=== PATIENT | female | born 2000 | race Caucasian/White ===

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

== ENCOUNTER 2021-01-18 15:53 | Emergency (ER) | payer OTHER ==
[~2021-01-18] VITALS: Ht 162.6 cm; Wt 63.7 kg
[2021-01-18] MEDS ORDERED: CEPHALEXIN 500 MG CAP PO ONE (17:10)
[2021-01-18] MEDS ORDERED: CEPH500C PO (17:12)
[2021-01-18] MEDS ORDERED: BACI500O8 TOP (17:12)
[2021-01-18 17:29] VITALS: BP 114/72
== END 2021-01-18 17:30 | disposition home or self-care (01) ==
LOC: M ED 15:53
DX: N64.52 Nipple discharge (principal); S21.041A Puncture wound with foreign body of right breast, initial encounter; W45.8XXA Other foreign body or object entering through skin, initial encounter; Y92.9 Unspecified place or not applicable; Y93.9 Activity, unspecified; Y99.9 Unspecified external cause status

== ENCOUNTER 2021-01-22 10:00 | Emergency (ER) | payer OTHER ==
[~2021-01-22] VITALS: Ht 162.6 cm; Wt 65.9 kg
[~2021-01-22 10:00] MED LIST: BACI500O8 TOP; CEPH500C PO
[2021-01-22 10:01] VITALS: BP 116/72
== END 2021-01-22 11:01 | disposition home or self-care (01) ==
LOC: M ED 10:00
DX: O03.9 Complete or unspecified spontaneous abortion without complication (principal); Z87.59 Personal history of other complications of pregnancy, childbirth and the puerperium

== ENCOUNTER 2021-02-04 07:44 | Emergency (ER) | payer OTHER ==
[~2021-02-04] VITALS: Ht 162.6 cm; Wt 66.9 kg
[2021-02-04] MEDS ORDERED: EPIP0.3I2 IM ×2 (07:51→12:46)
[2021-02-04] MEDS ORDERED: methylPREDNISolone 125MG 2ML VIAL IV ONE (07:55)
[2021-02-04] MEDS ORDERED: FAMOTIDINE INJ 20MG/2ML VIAL (S0028 PER 1) IVP ONE (07:55)
[2021-02-04] MEDS ORDERED: diphenhydrAMINE 50MG/ML VIAL (J1200) IV ONE (07:55)
[2021-02-04 13:16] VITALS: BP 111/68
== END 2021-02-04 13:09 | disposition home or self-care (01) ==
LOC: M ED 07:44
DX: T78.1XXA Other adverse food reactions, not elsewhere classified, initial encounter (principal); Z91.012 Allergy to eggs
CPT/HCPCS: 93041; 94760; 96374; 96375; 99291; J1200; J2930

== ENCOUNTER 2021-03-05 00:03 | Emergency (ER) | payer OTHER ==
[~2021-03-05] VITALS: Ht 162.6 cm; Wt 66.2 kg
[~2021-03-05 00:03] MED LIST changes: +EPIP0.3I2 IM
[2021-03-05] MEDS ORDERED: NS 1,000 ML IV ONE (01:35)
[2021-03-05] MEDS ORDERED: ONDANSETRON 4MG/2ML VIAL IV ONE (01:50)
[2021-03-05] MEDS ORDERED: KETOROLAC 30 MG/ML 1ML VIAL IV ONE (01:55)
[2021-03-05 02:22] LABS: BASO % 0.6 % (0.0-1.0); EOS # 0.2 10^3/uL (0.0-0.5); EOS % 3.3 % (0.0-3.0); HEMATOCRIT 34.1 % (36.0-47.0); HEMOGLOBIN 11.5 g/dl (12.0-15.5); LYMPH # 2.6 10^3/uL (1.5-5.0); MEAN CORPUSCULAR HEMOGLOBIN 31.5 pg (27.0-33.0); MEAN CORPUSCULAR HGB CONC 33.7 g/dl (32.0-36.5); MEAN CORPUSCULAR VOLUME 93.4 fl (80.0-96.0); MONO # 0.6 10^3/uL (0.0-0.8); MONO % 7.9 % (2.0-8.0); NEUTROPHILS # 3.5 10^3/uL (1.5-8.5); NEUTROPHILS % 50.1 % (36.0-66.0); PLATELET COUNT, AUTOMATED 278 10^3/uL (150-450); RED BLOOD COUNT 3.65 10^6/uL (4.00-5.40)
[2021-03-05 02:49] LABS: ALBUMIN 3.9 GM/DL (3.2-5.2); ALT/SGPT 17 U/L (12-78); BILIRUBIN,DIRECT < 0.1 MG/DL (0.0-0.2); BILIRUBIN,TOTAL 0.2 MG/DL (0.2-1.0); LIPASE 74 U/L (73-393); TOTAL PROTEIN 6.5 GM/DL (6.4-8.2)
[2021-03-05 04:15] VITALS: BP 102/57
[2021-03-05] MEDS ORDERED: ONDA4TAB6 PO (04:24)
== END 2021-03-05 04:58 | disposition home or self-care (01) ==
LOC: M ED 00:03
DX: T62.91XA Toxic effect of unspecified noxious substance eaten as food, accidental (unintentional), initial encounter (principal); Y92.9 Unspecified place or not applicable; Y93.9 Activity, unspecified; F17.290 Nicotine dependence, other tobacco product, uncomplicated; Z91.030 Bee allergy status; Z91.012 Allergy to eggs
CPT/HCPCS: 80047; 80076; 83690; 84702; 85025; 93041; 96361; 96374; 96375; 99284; J1885; J2405

== ENCOUNTER 2021-03-07 12:06 | Emergency (ER) | payer OTHER ==
[~2021-03-07] VITALS: Ht 162.6 cm; Wt 65.9 kg
[~2021-03-07 12:06] MED LIST changes: +ONDA4TAB6 PO
[2021-03-07] MEDS ORDERED: NS 1,000 ML IV ONE (13:55)
[2021-03-07 13:57] LABS: ALBUMIN 4.2 GM/DL (3.2-5.2); ALT/SGPT 17 U/L (12-78); BILIRUBIN,TOTAL 0.3 MG/DL (0.2-1.0); BLOOD UREA NITROGEN 9 MG/DL (7-18); CALCIUM LEVEL 8.8 MG/DL (8.5-10.1); CARBON DIOXIDE LEVEL 26 MEQ/L (21-32); CHLORIDE LEVEL 109 MEQ/L (98-107); CREATININE FOR GFR 0.57 MG/DL (0.55-1.30); GLUCOSE, FASTING 87 MG/DL (70-100); MAGNESIUM LEVEL 2.1 MG/DL (1.8-2.4); POTASSIUM SERUM 4.2 MEQ/L (3.5-5.1); SODIUM LEVEL 140 MEQ/L (136-145); TOTAL PROTEIN 7.1 GM/DL (6.4-8.2)
[2021-03-07 14:02] LABS: BASO % 0.4 % (0.0-1.0); EOS # 0.1 10^3/uL (0.0-0.5); EOS % 1.8 % (0.0-3.0); HEMATOCRIT 36.9 % (36.0-47.0); HEMOGLOBIN 12.1 g/dl (12.0-15.5); LYMPH # 1.7 10^3/uL (1.5-5.0); LYMPH % 29.3 % (24.0-44.0); MEAN CORPUSCULAR HGB CONC 32.8 g/dl (32.0-36.5); MEAN CORPUSCULAR VOLUME 94.6 fl (80.0-96.0); MONO # 0.4 10^3/uL (0.0-0.8); MONO % 7.1 % (2.0-8.0); NEUTROPHILS # 3.5 10^3/uL (1.5-8.5); PLATELET COUNT, AUTOMATED 277 10^3/uL (150-450); WHITE BLOOD COUNT 5.7 10^3/uL (4.0-10.0)
[2021-03-07 16:15] VITALS: BP 112/62
--- NOTE | 2021-03-07 21:01 | ECGEPIP ---
[facility] - ED Test Date: 2021-03-07 Pat Name: KEIKO STEPHENS Department: Room: - Gender: Female Housing Counselor: MAGGY : 2000 Requested By: Bridget Watts Order Number: [id number] Reading MD: Santosh Solorzano Measurements Intervals [place] Rate: 72 P: 49 MI: 156 QRS: 74 QRSD: 80 T: 45 QT: 354 QTc: 387 Interpretive Statements Normal sinus rhythm with sinus arrhythmia Comparison tracing not on file Electronically Signed on 03-07-2021 21:01:03 EDT by Santosh Solorzano
== END 2021-03-07 16:33 | disposition home or self-care (01) ==
LOC: M ED 12:06
DX: A08.4 Viral intestinal infection, unspecified (principal); F17.290 Nicotine dependence, other tobacco product, uncomplicated; Z91.030 Bee allergy status; Z91.012 Allergy to eggs

== ENCOUNTER 2021-04-12 16:18 | Emergency (ER) | payer OTHER ==
[~2021-04-12] VITALS: Ht 162.6 cm; Wt 65.0 kg
[2021-04-12 16:18] VITALS: BP 120/72
== END 2021-04-12 19:02 | disposition left against medical advice (07) ==
LOC: M ED 16:18
DX: Z53.21 Procedure and treatment not carried out due to patient leaving prior to being seen by health care provider (principal)

== ENCOUNTER 2021-07-24 07:12 | Emergency (ER) | payer OTHER ==
[~2021-07-24] VITALS: Ht 162.6 cm; Wt 68.2 kg
[2021-07-24] MEDS ORDERED: PRENTAB53 PO (07:21)
[2021-07-24] MEDS ORDERED: ACET-683 PO (07:21)
--- NOTE | 2021-07-24 08:58 | REP ---
INDICATION: COVID positive, tachycardia COMPARISON: None. TECHNIQUE: Transabdominal 1st trimester obstetrical ultrasound. FINDINGS: Single live early intrauterine is appreciated. [place]-rump length of 6.4 cm corresponds to 12 weeks 5 days gestational age with estimated date of delivery 01/31/2022. heart rate equals 150 beats per minute. Cervix measures 3.2 cm in length and appears closed. Anterior grade 0 placenta without previa. IMPRESSION: Single live early intrauterine at 12 weeks 5 days gestational age. Complete anatomical assessment should be performed and 19-20 weeks. <Electronically signed by Jacob Whiting > 07/24/21 3041
[2021-07-24 09:22] VITALS: BP 114/69
== END 2021-07-24 09:23 | disposition home or self-care (01) ==
LOC: M ED 07:12
DX: O98.511 Other viral diseases complicating pregnancy, first trimester (principal); U07.1 COVID-19; Z3A.12 12 weeks gestation of pregnancy; Z91.030 Bee allergy status; Z91.012 Allergy to eggs

== ENCOUNTER → 2021-08-06 | Outpatient (REF) | payer OTHER ==
[~2021-08-06] MED LIST changes: +ACET-683 PO; +PRENTAB53 PO
[2021-08-06 17:48] LABS: HEMATOCRIT 35.2 % (36.0-47.0); MEAN CORPUSCULAR HEMOGLOBIN 31.5 pg (27.0-33.0); MEAN CORPUSCULAR HGB CONC 34.1 g/dl (32.0-36.5); MEAN CORPUSCULAR VOLUME 92.4 fl (80.0-96.0); PLATELET COUNT, AUTOMATED 348 10^3/uL (150-450); RED BLOOD COUNT 3.81 10^6/uL (4.00-5.40); WHITE BLOOD COUNT 8.5 10^3/uL (4.0-10.0)
[2021-08-06 23:51] LABS: HCG, SERUM QUANTITATIVE 27919 MIU/ML; HEPATITIS B SURFACE ANTIGEN NEGATIVE (NEGATIVE); HEPATITIS C VIRUS ABY INDEX < 0.0 INDEX (<0.8); HIV 1&2 SCREEN CENTAUR NEGATIVE (NEGATIVE)
== END ==
LOC: M LAB REF 16:38
PROVIDERS: ATTEND Advanced Practice Midwife
DX: Z32.01 Encounter for pregnancy test, result positive (principal)

== ENCOUNTER → 2021-08-12 | Outpatient (REF) | payer OTHER | LOC: M LAB REF 16:09 | PROVIDERS: ATTEND Advanced Practice Midwife | DX: Z34.02 Encounter for supervision of normal first pregnancy, second trimester (principal) ==

== ENCOUNTER 2021-08-22 19:35 | Emergency (ER) | payer OTHER ==
[~2021-08-22] VITALS: Ht 162.6 cm; Wt 63.6 kg
[2021-08-22 20:26] LABS: BASO % 0.2 % (0.0-1.0); EOS # 0.1 10^3/uL (0.0-0.5); EOS % 1.5 % (0.0-3.0); HEMATOCRIT 31.8 % (36.0-47.0); HEMOGLOBIN 10.9 g/dl (12.0-15.5); LYMPH # 1.5 10^3/uL (1.5-5.0); LYMPH % 16.5 % (24.0-44.0); MEAN CORPUSCULAR HGB CONC 34.3 g/dl (32.0-36.5); MEAN CORPUSCULAR VOLUME 90.3 fl (80.0-96.0); MONO # 0.6 10^3/uL (0.0-0.8); NEUTROPHILS % 75.5 % (36.0-66.0); PLATELET COUNT, AUTOMATED 260 10^3/uL (150-450); RED BLOOD COUNT 3.52 10^6/uL (4.00-5.40); WHITE BLOOD COUNT 9.2 10^3/uL (4.0-10.0)
[2021-08-22 20:59] LABS: BLOOD UREA NITROGEN 8 MG/DL (7-18); CALCIUM LEVEL 8.9 MG/DL (8.5-10.1); CARBON DIOXIDE LEVEL 22 MEQ/L (21-32); CHLORIDE LEVEL 108 MEQ/L (98-107); CREATININE FOR GFR 0.42 MG/DL (0.55-1.30); GLUCOSE, FASTING 77 MG/DL (70-100); MAGNESIUM LEVEL 1.8 MG/DL (1.8-2.4); POTASSIUM SERUM 3.8 MEQ/L (3.5-5.1); SODIUM LEVEL 137 MEQ/L (136-145); THYROID STIMULATING HORMONE 0.753 uIU/ML (0.463-3.98)
[2021-08-22 22:31] VITALS: BP 119/68
== END 2021-08-22 22:55 | disposition home or self-care (01) ==
LOC: M ED 19:35
DX: O99.891 Other specified diseases and conditions complicating pregnancy (principal); R55 Syncope and collapse; S99.922A Unspecified injury of left foot, initial encounter; W01.0XXA Fall on same level from slipping, tripping and stumbling without subsequent striking against object, initial encounter; Z3A.16 16 weeks gestation of pregnancy; Z91.030 Bee allergy status; Z91.012 Allergy to eggs; Y92.009 Unspecified place in unspecified non-institutional (private) residence as the place of occurrence of the external cause; Y93.9 Activity, unspecified; Y99.9 Unspecified external cause status

== ENCOUNTER → 2021-11-01 | Outpatient (CLI) | payer OTHER ==
[2021-11-01 14:20] LABS: HEMOGLOBIN 11.5 g/dl (12.0-15.5); MEAN CORPUSCULAR HEMOGLOBIN 32.2 pg (27.0-33.0); MEAN CORPUSCULAR HGB CONC 33.8 g/dl (32.0-36.5); MEAN CORPUSCULAR VOLUME 95.2 fl (80.0-96.0); PLATELET COUNT, AUTOMATED 277 10^3/uL (150-450); RED BLOOD COUNT 3.57 10^6/uL (4.00-5.40); WHITE BLOOD COUNT 8.4 10^3/uL (4.0-10.0)
== END ==
LOC: M LAB 12:48
PROVIDERS: ATTEND Obstetrics & Gynecology
DX: Z34.02 Encounter for supervision of normal first pregnancy, second trimester (principal); Z3A.00 Weeks of gestation of pregnancy not specified

== ENCOUNTER → 2021-12-17 | Outpatient (REF) | payer OTHER ==
[~2021-12-17] MED LIST changes: +REGL10TA6 PO
== END ==
LOC: M LAB REF 12:18
PROVIDERS: ATTEND Obstetrics & Gynecology
DX: Z34.83 Encounter for supervision of other normal pregnancy, third trimester (principal)

== ENCOUNTER 2021-12-19 14:44 | Outpatient (CLI) | payer OTHER ==
[~2021-12-19] VITALS: Ht 167.6 cm; Wt 77.3 kg
[~2021-12-19 14:44] MED LIST changes: -REGL10TA6 PO
[2021-12-19 15:04] VITALS: BP 125/75
[2021-12-19 15:38] LABS: HEMATOCRIT 31.1 % (36.0-47.0); HEMOGLOBIN 10.5 g/dl (12.0-15.5); MEAN CORPUSCULAR HEMOGLOBIN 31.5 pg (27.0-33.0); MEAN CORPUSCULAR HGB CONC 33.8 g/dl (32.0-36.5); MEAN CORPUSCULAR VOLUME 93.4 fl (80.0-96.0); PLATELET COUNT, AUTOMATED 297 10^3/uL (150-450); RED BLOOD COUNT 3.33 10^6/uL (4.00-5.40); WHITE BLOOD COUNT 9.1 10^3/uL (4.0-10.0)
[2021-12-19 15:51] VITALS: BP 130/70
[2021-12-19 15:53] LABS: CREATININE,RANDOM URINE 40.3 MG/DL; TOTAL PROTEIN,RANDOM URINE 10.2 MG/DL (0.0-12.0)
[2021-12-19 16:07] LABS: ALT/SGPT 13 U/L (12-78); BILIRUBIN,TOTAL 0.2 MG/DL (0.2-1.0); CREATININE FOR GFR 0.43 MG/DL (0.55-1.30); LDH LACTATE DEHYDROGENASE 142 U/L (84-246); URIC ACID 2.8 MG/DL (2.6-6.0)
[2021-12-19] MEDS ORDERED: REGL10TA6 PO (16:27)
== END 2021-12-19 16:15 | disposition home or self-care (01) ==
LOC: M LDO 14:44
PROVIDERS: ATTEND Obstetrics & Gynecology
DX: O26.893 Other specified pregnancy related conditions, third trimester (principal); R51.9 Headache, unspecified; O24.419 Gestational diabetes mellitus in pregnancy, unspecified control
CPT/HCPCS: 36415; 59025; 82247; 82565; 82570; 83615; 84156; 84450; 84460; 84550; 85027; G0463

== ENCOUNTER → 2021-12-27 | Outpatient (REF) | payer OTHER ==
[~2021-12-27] MED LIST changes: +REGL10TA6 PO
== END ==
LOC: M LAB REF 11:56
PROVIDERS: ATTEND Advanced Practice Midwife
DX: R30.0 Dysuria (principal)

== ENCOUNTER → 2021-12-31 | Outpatient (REF) | payer OTHER | LOC: M LAB REF 16:24 | PROVIDERS: ATTEND Obstetrics & Gynecology | DX: Z36.85 Encounter for antenatal screening for Streptococcus B (principal) ==

== ENCOUNTER 2023-05-31 19:25 | Emergency (ER) | payer OTHER ==
[~2023-05-31] VITALS: Ht 162.6 cm; Wt 67.6 kg
[2023-05-31 20:50] LABS: BASO % 0.4 % (0.0-1.0); EOS # 0.2 10^3/uL (0.0-0.5); EOS % 1.9 % (0.0-3.0); HEMATOCRIT 38.3 % (36.0-47.0); HEMOGLOBIN 12.6 g/dl (12.0-15.5); LYMPH # 3.1 10^3/uL (1.5-5.0); LYMPH % 34.3 % (24.0-44.0); MEAN CORPUSCULAR HEMOGLOBIN 29.4 pg (27.0-33.0); MEAN CORPUSCULAR HGB CONC 32.9 g/dl (32.0-36.5); MEAN CORPUSCULAR VOLUME 89.5 fl (80.0-96.0); MONO # 0.6 10^3/uL (0.0-0.8); MONO % 6.4 % (2.0-8.0); NEUTROPHILS # 5.1 10^3/uL (1.5-8.5); NEUTROPHILS % 56.8 % (36.0-66.0); PLATELET COUNT, AUTOMATED 346 10^3/uL (150-450); RED BLOOD COUNT 4.28 10^6/uL (4.00-5.40)
[2023-05-31 22:19] LABS: CK-MB VALUE MASS < 1.0 NG/ML (<3.6)
[2023-05-31 22:20] LABS: CPK CREATINE PHOSPHOKINASE 68 U/L (34-145); MB/CK RELATIVE INDEX 1.47 (< OR =4)
[2023-05-31 22:51] VITALS: BP 124/86; TEMP 97.9; O2SAT 100
== END 2023-05-31 22:54 | disposition home or self-care (01) ==
LOC: M ED 19:25
DX: R07.9 Chest pain, unspecified (principal); S80.12XA Contusion of left lower leg, initial encounter; F17.200 Nicotine dependence, unspecified, uncomplicated; F12.10 Cannabis abuse, uncomplicated; F10.10 Alcohol abuse, uncomplicated; Z91.030 Bee allergy status; Z91.012 Allergy to eggs; Z79.899 Other long term (current) drug therapy

== ENCOUNTER → 2024-06-21 | Outpatient (CLI) | payer OTHER ==
[~2024-06-21] MED LIST changes: +ISOVUE-300 61% 100ML VIAL As Ordered ONE; +LIDOCAINE 1% MDV 20ML VIAL As Ordered ONE; +ONDA-282 PO; -ONDA4TAB6 PO; +PROHANCE 279.3MG/ML 5ML VIAL As Ordered ONE
== END ==
LOC: M RAD 08:49
PROVIDERS: ATTEND Family Medicine
DX: M25.512 Pain in left shoulder (principal)
CPT/HCPCS: 23350; 73223; 77002; A9576; Q9967

== ENCOUNTER 2024-10-18 09:21 | Day surgery (SDC) | payer OTHER ==
[~2024-10-18] VITALS: Ht 162.6 cm; Wt 72.8 kg
[~2024-10-18 09:21] MED LIST changes: +BUPR150T12 PO; +ISOT40CA5 PO; -ISOVUE-300 61% 100ML VIAL As Ordered ONE; -LIDOCAINE 1% MDV 20ML VIAL As Ordered ONE; -PROHANCE 279.3MG/ML 5ML VIAL As Ordered ONE; +SEMAGLUTIDE; +VENL37.598 PO; +VITA100093 PO; +[UNRECOGNIZED DRUG - OTHER]
[2024-10-18] MEDS ORDERED: propofoL 500 MG/50 ML VIAL As Ordered ONE (09:57)
[2024-10-18] MEDS ORDERED: fentaNYL 100 MCG/2 ML INJECTION As Ordered ONE (09:58)
[2024-10-18] MEDS ORDERED: GLYCOPYRROLATE INJ 0.2 MG/ML 2 ML VIAL As Ordered ONE (09:59)
[2024-10-18] MEDS ORDERED: LIDOCAINE 2% 100MG/5ML SDV (FOR ANES.) As Ordered ONE (09:59)
[2024-10-18 12:35] VITALS: BP 112/67; O2SAT 99
== END 2024-10-18 12:43 | disposition home or self-care (01) ==
LOC: M OPP 09:21
PROVIDERS: ATTEND Internal Medicine Gastroenterology
DX: K59.00 Constipation, unspecified (principal); K58.1 Irritable bowel syndrome with constipation; R10.84 Generalized abdominal pain; R12 Heartburn; Z79.899 Other long term (current) drug therapy; Z91.012 Allergy to eggs; Z91.030 Bee allergy status; F17.290 Nicotine dependence, other tobacco product, uncomplicated
CPT/HCPCS: 43239; 45378; 88305; J1596; J3010